=== PATIENT | female | born 1950 | race Caucasian/White ===

== ENCOUNTER 2025-06-23 07:15 | Day surgery (SDC) | payer OTHER ==
[2025-06-23] VITALS (15 sets, daily range): BP systolic 87–147; BP diastolic 44–70
[~2025-06-23] VITALS: Ht 170.2 cm; Wt 84.9 kg
[~2025-06-23 07:15] MED LIST: ASPI81CH PO; CALCAVITD PO; CARV3.125 PO; FISH1000 PO; LEVO-T88 MC1 PO; LEVSOD100 PO; LISI20; LISI5; PRAV20; PRAV20 PO; QUET100 PO; SPIR25 PO; TEMA15 PO
--- NOTE | 2025-06-23 07:37 | NUR ---
06/23/25 0737 Elvia Marrero CONFIRMED AND REVIEWED H&P, MEDCICATIONS, ALLERGIES, MEDICAL HISTORY, RESPIRATORY HISTORY, VITAL SIGNS, 3-LEAD EKG, CONSENTS, AND PHYSICIAN ORDERS. PATIENT CONFIRMS NPO STATUS AND AGREES WITH SCHEDULED PROCEDURE. MONITOR INTACT WITH CONTINUOUS PULSE OXIMETRY, CAPNOGRAPHY, 3-LEAD EKG, INTERMITTENT BP. SUPPLEMENTAL O2 TO BE TITRATED THROUGHOUT PROCEDURE TO MAINTAIN O2 SATURATION ABOVE 90%. PATIENT DETERMINED TO BE ASA APPROPRIATE FOR PROPOFOL SEDATION PRIOR TO START OF PROCEDURE BY DR. BENITEZ
--- NOTE | 2025-06-23 07:46 | NUR ---
Ambulatory in Day Surgery. History, Chart, Medications and Allergies reviewed before start of procedure. Lungs clear T/O to Auscultation. Patient confirms NPO status and agrees with scheduled surgery. Pre-Op teaching done. Pt verbalizes understanding. Patient States Post-Procedure ride home has been arranged.
--- NOTE | 2025-06-23 08:57 | NUR ---
Patient States Post-Procedure ride home has been arranged. Discharged via wheelchair to private car for ride home. Discharge instructions reviewed with patient. Patient verbalizes understanding. Copy given to patient to take home.
== END 2025-06-23 23:00 | disposition home or self-care (01) ==
LOC: ORSCMMR 07:15 → ORD 08:00 → ORSCMMR 23:00
PROVIDERS: Internal Medicine Gastroenterology
PROC: 0DJD8ZZ Inspection of Lower Intestinal Tract, Via Natural or Artificial Opening Endoscopic (ICD-10-PCS; principal; 2025-06-23 08:00)
DX: Z12.11 Encounter for screening for malignant neoplasm of colon (principal); I25.10 Atherosclerotic heart disease of native coronary artery without angina pectoris; E03.9 Hypothyroidism, unspecified; Z79.82 Long term (current) use of aspirin; Z79.899 Other long term (current) drug therapy
CPT/HCPCS: J2704; J7120